=== PATIENT | male | born 1960 | race Hispanic/Latino ===

== ENCOUNTER 2016-04-28 08:16 | Emergency (ER) | payer MEDICAID ==
[2016-04-28 09:52] LABS: Basophils % (Auto) 0.7 % (0.0-1.8); Eosinophils % (Auto) 2.7 % (0.0-4.3); Hematocrit 48.7 % (35.5-45.6); Hemoglobin 17.1 gm/dl (11.8-15.2); Mean Corpuscular HGB Conc 35 % (32-34); Mean Corpuscular Hemoglobin 34 pg (28-32); Mean Corpuscular Volume 97 fl (84-94); Platelet Count 209 K/mm3 (140-440); Red Blood Count 5.03 M/mm3 (3.65-5.03); Red Cell Distribution Width 13.8 % (13.2-15.2); White Blood Count 14.4 K/mm3 (4.5-11.0)
[2016-04-28 10:06] LABS: Anion Gap 21 mmol/L; BUN/Creatinine Ratio 18.57; Blood Urea Nitrogen 13 mg/dL (9-20); Calcium 9.3 mg/dL (8.4-10.2); Carbon Dioxide 25 mmol/L (22-30); Chloride 92.1 mmol/L (98-107); Glucose 181 mg/dL (75-100); Potassium 4.6 mmol/L (3.6-5.0); Sodium 133 mmol/L (137-145)
[2016-04-28] MEDS ORDERED: GEODON IM ONE (10:19)
[2016-04-28] MEDS ORDERED: ALUM-MAG HYDROX-SIMETH 200-200-20MG/5ML PO PRN (10:28)
[2016-04-28] MEDS ORDERED: MILK OF MAGNESIA PO PRN (10:28)
[2016-04-28 10:56] LABS: Urine Drugs of Abuse Note Disclamer
[2016-04-28] MEDS ORDERED: WATER FOR INJ (PF) IM ONE (11:00)
[2016-04-28] MEDS ORDERED: GEODON IM SCH (11:00)
[2016-04-28] MEDS: ATIVAN IM SCH (11:06)
[2016-04-28 11:10] LABS: Bilirubin,Urine NEG (Negative); Blood,Urine SM (Negative); Ketones,Urine TR mg/dL (Negative); Leukocyte Esterase,Urine NEG (Negative); Nitrite,Urine NEG (Negative); Protein,Urine <15 mg/dL mg/dL (Negative); Urobilinogen,Urine < 2.0 mg/dL (<2.0)
--- NOTE | 2016-04-28 12:54 | Emergency Department Report ---
ED General Adult HPI - General Chief complaint: Psych Stated complaint: MH Time Seen by Provider: 04/28/16 10:12 Source: patient Mode of arrival: Ambulatory Limitations: Other - History of Present Illness Initial comments: The patient was agitated and required security. He was placed in a seclusion room. I found him on the floor mattress poorly cooperative. He was a bit confrontation and agitated. He did not like to be asked many questions and was guarded concerning his history. He kept for several rating about his social situation stating "that woman is not my sister". 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 I did interview this lady. She told me that he was "constantly masturbating", drinking urine from the toilet and [place]. She told the mental health counselor that she is relinquishing her power of disability attorney as soon as possible. The patient himself has a history of a bipolar disorder/schizoaffective for schizophrenic disorder. I believe he has been poorly compliant with his medication. -: days(s) Associated Symptoms: denies other symptoms - Related Data Previous Rx's Medication Instructions Recorded Last Taken Type Divalproex Dr [Depakote Dr] 500 mg PO BID #30 tablet 11/15/15 Unknown Rx LORazepam [Ativan] 1 mg PO DAILY PRN #5 tab 11/15/15 Unknown Rx QUEtiapine [SEROquel] 400 mg PO BID #30 tablet 11/15/15 Unknown Rx busPIRone [Buspar] 5 mg PO BID #30 tablet 11/15/15 Unknown Rx Allergies Allergy/AdvReac Type Severity Reaction Status Date / Time Penicillins Allergy Anaphylaxis Verified 10/14/15 23:30 ED Review of Systems ROS: Stated complaint: MH Other details as noted in HPI Comment: All other systems reviewed and negative (patient denies any complaints. He denies hallucinosis or paranoid ideation.) ED Past Medical Hx - Past Medical History Previous Medical History?: Yes Hx Diabetes: Yes Hx Psychiatric Treatment: Yes (schizoeffective,bipolar,anxiety,MR) - Surgical History Past Surgical History?: No - Social History Smoking Status: Current Every Day Smoker Substance Use Type: Prescribed - Medications Home Medications: Home Medications Medication Instructions Recorded Confirmed Last Taken Type Divalproex Dr [Depakote Dr] 500 mg PO BID #30 tablet 11/15/15 Unknown Rx LORazepam [Ativan] 1 mg PO DAILY PRN #5 tab 11/15/15 Unknown Rx QUEtiapine [SEROquel] 400 mg PO BID #30 tablet 11/15/15 Unknown Rx busPIRone [Buspar] 5 mg PO BID #30 tablet 11/15/15 Unknown Rx ED Physical Exam - General Limitations: Other (psychiatric status) General appearance: alert, other (agitated) - Head Head exam: Present: atraumatic, normocephalic - Eye Eye exam: Present: normal appearance, PERRL, EOMI. Absent: scleral icterus - ENT ENT exam: Present: mucous membranes dry - Neck Neck exam: Present: normal inspection. Absent: tenderness, meningismus - Respiratory Respiratory exam: Present: normal lung sounds bilaterally. Absent: respiratory distress - Cardiovascular Cardiovascular Exam: Present: regular rate, normal rhythm. Absent: systolic murmur, diastolic murmur, rubs, gallop - GI/Abdominal GI/Abdominal exam: Present: soft, normal bowel sounds. Absent: distended, tenderness, guarding, rebound, rigid, organomegaly, mass - Rectal Rectal exam: Present: deferred - Extremities Exam Extremities exam: Present: normal inspection - Back Exam Back exam: Present: normal inspection. Absent: CVA tenderness (R), CVA tenderness (L) - Neurological Exam Neurological exam: Present: alert, oriented X3, CN II-XII intact. Absent: motor sensory deficit - Psychiatric Psychiatric exam: Present: normal affect, normal mood - Skin Skin exam: Present: warm, dry, intact, normal color. Absent: rash ED Course Vital Signs 04/28/16 08:50 Temperature 97.5 F L Pulse Rate 104 H Respiratory 18 Rate Blood Pressure 145/75 O2 Sat by Pulse 97 Oximetry - Reevaluation(s) Reevaluation #1: Patient was given a liter of IV fluid. His labs were consistent with hemoconcentration and mild hyponatremia. After the IV fluid this is expected to correct. The abdomen these are mild. I don't think his labs need to be repeated after intravenous hydration. He is medically cleared then for psychiatric placement. 04/28/16 13:00 ED Medical Decision Making - Lab Data Result diagrams: 04/28/16 09:34 04/28/16 09:34 Laboratory Results - last 24 hr 04/28/16 04/28/16 04/28/16 09:34 09:34 09:34 WBC 14.4 H RBC 5.03 Hgb 17.1 H Hct 48.7 H MCV 97 H MCH 34 H MCHC 35 H RDW 13.8 Plt Count 209 Lymph % (Auto) 25.1 [place] % (Auto) 9.4 H Eos % (Auto) 2.7 Baso % (Auto) 0.7 Lymph # 3.6 [place] # 1.3 H Eos # 0.4 Baso # 0.1 Seg Neutrophils % 62.1 Seg Neutrophils # 9.0 H Sodium 133 L Potassium 4.6 Chloride 92.1 L Carbon Dioxide 25 Anion Gap 21 BUN 13 Creatinine 0.7 L Estimated GFR > 60 BUN/Creatinine Ratio 18.57 Glucose 181 H Calcium 9.3 Urine Color Urine Turbidity Urine pH Ur Specific [place] Urine Protein Urine Glucose (UA) Urine Ketones Urine Blood Urine Nitrite Urine Bilirubin Urine Urobilinogen Ur Leukocyte Esterase Urine WBC (Auto) Urine RBC (Auto) Urine Opiates Screen Urine Methadone Screen Ur Barbiturates Screen Ur Phencyclidine Scrn Ur Amphetamines Screen U Benzodiazepines Scrn Urine Cocaine Screen U Marijuana (THC) Screen Drugs of Abuse Note Plasma/Serum Alcohol < 0.01 04/28/16 04/28/16 Unknown Unknown WBC RBC Hgb Hct MCV MCH MCHC RDW Plt Count Lymph % (Auto) [place] % (Auto) Eos % (Auto) Baso % (Auto) Lymph # [place] # Eos # Baso # Seg Neutrophils % Seg Neutrophils # Sodium Potassium Chloride Carbon Dioxide Anion Gap BUN Creatinine Estimated GFR BUN/Creatinine Ratio Glucose Calcium Urine Color Yellow Urine Turbidity Clear Urine pH 5.0 Ur Specific [place] 1.013 Urine Protein <15 mg/dl Urine Glucose (UA) >=500 Urine Ketones Tr Urine Blood Sm Urine Nitrite Neg Urine Bilirubin Neg Urine Urobilinogen < 2.0 Ur Leukocyte Esterase Neg Urine WBC (Auto) 1.0 Urine RBC (Auto) 2.0 Urine Opiates Screen Presumptive negative Urine Methadone Screen Presumptive negative Ur Barbiturates Screen Presumptive negative Ur Phencyclidine Scrn Presumptive negative Ur Amphetamines Screen Presumptive negative U Benzodiazepines Scrn Presumptive negative Urine Cocaine Screen Presumptive negative U Marijuana (THC) Screen Presumptive negative Drugs of Abuse Note Disclamer Plasma/Serum Alcohol Critical care attestation.: If time is entered above; I have spent that time in minutes in the direct care of this critically ill patient, excluding procedure time. ED Disposition Clinical Impression: Dehydration Bipolar disorder Qualifiers: Active/Remission status: currently active Current bipolar episode type: manic Current episode severity: severe Psychotic features: with psychotic features Qualified Code(s): F31.2 - Bipolar disorder, current episode manic severe with psychotic features Disposition: DC/TX PSY HOSP/PSY UNIT Is pt being admited?: No Does the pt Need Aspirin: No Condition: Stable Time of Disposition: 13:02
[2016-04-28] MEDS ORDERED: NACL 0.9% 1000 ML 1,000 ML IV ONE (12:59)
[2016-04-28] MEDS ORDERED: ATIVAN IV ONE (17:20)
[2016-04-28] MEDS: GEODON PO SCH ×3 (18:54→22:38)
[2016-04-29] MEDS: GEODON PO SCH ×2 (09:44→21:45)
--- NOTE | 2016-04-29 15:25 | Event Note ---
Date: 04/29/16 Vital signs stable and nursing notes reviewed. Patient's home meds reconciled. Patient awaiting placement.
[2016-04-29] MEDS: ATIVAN PO PRN (15:31)
[2016-04-29] MEDS: DESYREL PO SCH (21:45)
[2016-04-29] MEDS: GLUCOPHAGE PO SCH (21:45)
[2016-04-29] MEDS ORDERED: NON-FORMULARY (Quetiapine Fumarate [Seroquel Xr] 300 MG) PO SCH (22:00)
[2016-04-29] MEDS ORDERED: NON-FORMULARY (Trazodone 100 MG) PO SCH (22:00)
[2016-04-30] MEDS: TYLENOL PO PRN (02:39)
[2016-04-30] MEDS: GLUCOPHAGE PO SCH ×2 (10:21→22:18)
[2016-04-30] MEDS: GEODON PO SCH ×2 (10:21→22:19)
[2016-04-30] MEDS: SYNTHROID PO SCH (10:21)
[2016-04-30] MEDS: ATIVAN IM SCH (13:45)
[2016-04-30] MEDS: ATIVAN PO PRN (21:00)
[2016-04-30] MEDS: DESYREL PO SCH (22:20)
[2016-05-01] MEDS: GLUCOPHAGE PO SCH ×2 (10:24→22:18)
[2016-05-01] MEDS: GEODON PO SCH ×2 (10:24→22:18)
[2016-05-01] MEDS: SYNTHROID PO SCH (10:24)
[2016-05-01] MEDS: TYLENOL PO PRN (10:36)
[2016-05-01] MEDS: ATIVAN PO PRN (19:00)
[2016-05-01] MEDS: DESYREL PO SCH (22:18)
[2016-05-02] MEDS: GLUCOPHAGE PO SCH (10:25)
[2016-05-02] MEDS: GEODON PO SCH (10:25)
[2016-05-02] MEDS: SYNTHROID PO SCH (10:25)
--- NOTE | 2016-05-02 15:07 | Emergency Department Report ---
Blank Doc - Documentation Documentation: This patient has been reassessed by the mental health counselor. He has verified that the patient does not meet 1013 criteria. 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 I've interviewed this patient myself. I do not find him to be acutely psychotic. He is a bit hyperverbal but he is not agitated. He is not hallucinating. I believe he is back to her recent baseline status for outpatient management. I will recent is 1013. In addition his examination shows no evidence of physical compromise.
[2016-05-02] MEDS: TYLENOL PO PRN (17:11)
[2016-05-02 21:45] VITALS: BP 162/80
== END 2016-05-02 20:30 ==
LOC: EEVIPCON 08:16 → ED 08:16
DX: F31.2 Bipolar disorder, current episode manic severe with psychotic features (principal); E86.0 Dehydration; E11.9 Type 2 diabetes mellitus without complications; F20.9 Schizophrenia, unspecified; F41.9 Anxiety disorder, unspecified; F17.200 Nicotine dependence, unspecified, uncomplicated; Z88.0 Allergy status to penicillin
CPT/HCPCS: 36415; 80048; 80307; 81001; 82962; 85025; 96361; 96372; 96374; 99284; G0480; J2060; J3486; J7030; 80320